=== PATIENT | female | born 1970 | race Caucasian/White ===

== ENCOUNTER 2017-06-23 12:36 | Emergency (ER) | payer BC, OTHER ==
[2017-06-23 12:47] VITALS: RESP 18
[2017-06-23] MEDS ORDERED: SODIUM CHLORIDE 0.9% 500 ML IV STA (13:38)
--- NOTE | 2017-06-23 13:46 | ED ---
Chest Pain HPI - General Chief Complaint: Chest Pain Stated Complaint: High Blood Pressure, Abnormal EKG Time Seen by Provider: 06/23/17 13:27 Source: patient, RN notes reviewed Mode of arrival: ambulatory Limitations: no limitations - History of Present Illness Initial Comments: 46-year-old female presented emergency department with chief complaint of chest discomfort, high blood pressure. She states that she's not been feeling well last 2 weeks states she's been having increasing chest pressure. Patient states that she is found to have high blood pressure at urgent care and sent over here. She states that she used to take blood pressure medication but has not taken in 3 years. She states she has not seen her PCP in over 3 years. She states she has a strong history of family heart disease, patient is a smoker. Patient states she has not had her cholesterol checked recently. Patient states that she is also having some dizziness. Denies any URI symptoms denies any thyroid dysfunction, nausea, vomiting diarrhea or constipation. - Related Data Home Medications Medication Instructions Recorded Confirmed Ibuprofen [Motrin] 800 mg PO Q6HR PRN 06/23/17 06/23/17 Multivitamins, Thera [Multivitamin 1 tab PO DAILY 06/23/17 06/23/17 (formulary)] Previous Rx's Medication Instructions Recorded Lisinopril [Zestril] 10 mg PO DAILY #14 tab 06/23/17 Allergies Allergy/AdvReac Type Severity Reaction Status Date / Time No Known Allergies Allergy Verified 06/23/17 14:11 Review of Systems ROS Statement: Those systems with pertinent positive or pertinent negative responses have been documented in the HPI. ROS Other: All systems not noted in ROS Statement are negative. EKG Findings - EKG Comments: EKG Findings:: EKG performed at 13:01 sinus bradycardia with sinus arrhythmia, rate of 56 OK 120 QRS 90 QT/QTC 396/382 Past Medical History Past Medical History: Hypertension History of Any Multi-Drug Resistant Organisms: None Reported Past Surgical History: Section Past Psychological History: No Psychological Hx Reported Smoking Status: Current every day smoker Past Alcohol Use History: Occasional Past Drug Use History: None Reported General Exam Limitations: no limitations General appearance: alert, in no apparent distress Head exam: Present: atraumatic, normocephalic, normal inspection ENT exam: Present: normal exam, normal oropharynx, mucous membranes moist, TM's normal bilaterally, normal external ear exam Neck exam: Present: normal inspection. Absent: tenderness, meningismus, lymphadenopathy Respiratory exam: Present: normal lung sounds bilaterally. Absent: respiratory distress, wheezes, rales, rhonchi, stridor Cardiovascular Exam: Present: regular rate, normal rhythm, normal heart sounds. Absent: systolic murmur, diastolic murmur, rubs, gallop, clicks GI/Abdominal exam: Present: soft, normal bowel sounds. Absent: distended, tenderness, guarding, rebound, rigid Neurological exam: Present: alert, oriented X3, CN II-XII intact Skin exam: Present: warm, dry, intact, normal color. Absent: rash Course Vital Signs 06/23/17 06/23/17 06/23/17 12:45 13:49 14:10 Temperature 98.2 F Pulse Rate 68 52 L 52 L Respiratory 18 18 18 Rate Blood Pressure 234/105 174/92 175/87 O2 Sat by Pulse 98 100 100 Oximetry 06/23/17 14:49 Temperature Pulse Rate 50 L Respiratory 18 Rate Blood Pressure 159/77 O2 Sat by Pulse 98 Oximetry Chest Pain MDM - MDM 46-year-old male present emergency department for hypertension, intermittent chest pressure over the last couple weeks. Patient lab work is unremarkable EKG unremarkable. Patient was offered admission to hospital though she declined. She understands that we cannot guarantee that she's not had a cardiac event time she should be evaluated by cardiology and have repeat cardiac enzymes. Patient declines. Patient we discharged on lisinopril and follow-up on at her scheduled appointment. Return parameters were discussed. Disposition Clinical Impression: Hypertension, Atypical chest pain Disposition: HOME SELF-CARE Condition: Stable Instructions: Chest Pain (ED) Additional Instructions: Please return to the Emergency Department if symptoms worsen or any other concerns. Prescriptions: Lisinopril [Zestril] 10 mg PO DAILY #14 tab Referrals: Franki Fernando DO [Primary Care Provider] - 1-2 days Time of Disposition: 15:12
[2017-06-23] MEDS ORDERED: cloNIDine HCL 0.1 MG TAB PO STA (13:54)
[2017-06-23 14:09] LABS: Basophils % (A) 0 %; CH 32.1; CHCM 34.2; Eosinophils # (A) 0.2 k/uL (0-0.7); Eosinophils % (A) 2 %; HCT 42.9 % (34.0-46.0); HDW 2.38; HGB 14.6 gm/dL (11.4-16.0); Luc # (Auto) 0.15; Luc % (Auto) 1; Lymphocytes # (A) 2.7 k/uL (1.0-4.8); Lymphocytes % (A) 26 %; MCV 94.1 fL (80.0-100.0); Mean Platelet Volume 7.8; Monocytes # (A) 0.5 k/uL (0-1.0); Monocytes % (A) 5 %; Neutrophils # (A) 6.6 k/uL (1.3-7.7); Neutrophils % (A) 65 %; RBC 4.56 m/uL (3.80-5.40); WBC 10.2 k/uL (3.8-10.6); WBC (Perox) 10.24
--- NOTE | 2017-06-23 14:10 | XR ---
EXAMINATION TYPE: XR chest 2V DATE OF EXAM: 06/23/2017 CLINICAL HISTORY: Chest pain TECHNIQUE: Frontal and lateral views of the chest are obtained. COMPARISON: None FINDINGS: There is no focal air space opacity, pleural effusion, or pneumothorax seen. The cardiac silhouette size is within normal limits. The osseous structures are intact. IMPRESSION: No acute cardiopulmonary process.
[2017-06-23 14:15] LABS: Partial Thromboplastin Time 26.8 sec (22.0-30.0); Prothrombin Time 10.4 sec (9.0-12.0)
[2017-06-23 14:20] LABS: ALT 45 U/L (9-52); AST 26 U/L (14-36); Alkaline Phosphatase 74 U/L (38-126); Anion Gap 9 mmol/L; Blood Urea Nitrogen 17 mg/dL (7-17); Calcium 9.5 mg/dL (8.4-10.2); Carbon Dioxide 22 mmol/L (22-30); Chloride 109 mmol/L (98-107); Glucose 82 mg/dL (74-99); Magnesium 2.2 mg/dL (1.6-2.3); Non-African American GFR(MDRD) >60 (>60 ml/min/1.73 sqM); Sodium 140 mmol/L (137-145); Total Bilirubin 0.3 mg/dL (0.2-1.3); Total Protein 6.8 g/dL (6.3-8.2)
[2017-06-23 14:22] LABS: Potassium 4.3 mmol/L (3.5-5.1)
[2017-06-23 14:29] LABS: Creatine Kinase 52 U/L (30-135)
[2017-06-23 14:42] LABS: Creatine Kinase MB 0.7 ng/mL (0.0-2.4); Troponin I <0.012 ng/mL (0.000-0.034)
[2017-06-23 15:20] VITALS: BP 147/68; PULSE 54; TEMP 98.1
== END 2017-06-23 15:23 | disposition home or self-care (01) ==
LOC: EC 12:36
DX: I10 Essential (primary) hypertension (principal); R07.89 Other chest pain; R42 Dizziness and giddiness; F17.200 Nicotine dependence, unspecified, uncomplicated; Z79.899 Other long term (current) drug therapy; Z82.49 Family history of ischemic heart disease and other diseases of the circulatory system
CPT/HCPCS: 36415; 71020; 80053; 82550; 82553; 83735; 84443; 84484; 85025; 85610; 85730; 93005; 96360; 99285

== ENCOUNTER 2022-07-01 00:03 | Emergency (ER) | payer BC ==
[2022-07-01 00:09] VITALS: TEMP 98
--- NOTE | 2022-07-01 00:19 | ED ---
Chest Pain HPI - General Chief Complaint: Chest Pain Stated Complaint: Chest pain Source: patient, RN notes reviewed, old records reviewed Mode of arrival: ambulatory Limitations: no limitations - History of Present Illness Initial Comments: This is a 51-year-old female DF for evaluation presented today for evaluation of elevated blood pressure history of hypertension and chest pain. No shortness of breath no other complaints. States the pain is dull in nature and started about 2 hours prior to arrival to the ER MD Complaint: chest pain -: hour(s) (2) Onset: during rest Pain Location: substernal, left chest Pain Radiation: none Severity: mild Severity scale (1-10): 2 Quality: dull Consistency: constant Improves With: nothing Worsens With: nothing Context: other (0) Anginal Symptoms: other (0) Other Symptoms: other (0) Treatments Prior to Arrival: none - Related Data Home Medications Medication Instructions Recorded Confirmed Ibuprofen [Motrin] 800 mg PO Q6HR PRN 06/23/17 06/23/17 Multivitamins, Thera [Multivitamin 1 tab PO DAILY 06/23/17 06/23/17 (formulary)] Previous Rx's Medication Instructions Recorded lisinopriL [Zestril] 10 mg PO DAILY #14 tab 06/23/17 Allergies Allergy/AdvReac Type Severity Reaction Status Date / Time No Known Allergies Allergy Verified 07/01/22 00:06 Review of Systems ROS Statement: Those systems with pertinent positive or pertinent negative responses have been documented in the HPI. ROS Other: All systems not noted in ROS Statement are negative. EKG Findings - EKG Comments: EKG Findings:: EKG is sinus 60 [place] 141 QRS 76 QTC 384 Past Medical History Past Medical History: Hypertension History of Any Multi-Drug Resistant Organisms: None Reported Past Surgical History: Section Past Psychological History: No Psychological Hx Reported Smoking Status: Current every day smoker Past Alcohol Use History: Occasional Past Drug Use History: None Reported General Exam Limitations: no limitations General appearance: alert, in no apparent distress Head exam: Present: atraumatic, normocephalic, normal inspection Eye exam: Present: normal appearance, PERRL, EOMI. Absent: scleral icterus, conjunctival injection, periorbital swelling ENT exam: Present: normal exam, mucous membranes moist Neck exam: Present: normal inspection. Absent: tenderness, meningismus, lymphadenopathy Respiratory exam: Present: normal lung sounds bilaterally. Absent: respiratory distress, wheezes, rales, rhonchi, stridor Cardiovascular Exam: Present: regular rate, normal rhythm, normal heart sounds. Absent: systolic murmur, diastolic murmur, rubs, gallop, clicks GI/Abdominal exam: Present: soft, normal bowel sounds. Absent: distended, tenderness, guarding, rebound, rigid Extremities exam: Present: normal inspection, full ROM, normal capillary refill. Absent: tenderness, pedal edema, joint swelling, calf tenderness Back exam: Present: normal inspection Neurological exam: Present: alert, oriented X3, CN II-XII intact Psychiatric exam: Present: normal affect, normal mood Skin exam: Present: warm, dry, intact, normal color. Absent: rash Course Vital Signs 07/01/22 07/01/22 00:06 01:37 Temperature 98 F Pulse Rate 67 60 Respiratory 16 18 Rate Blood Pressure 187/95 149/77 O2 Sat by Pulse 98 98 Oximetry - Reevaluation(s) Reevaluation #1: 07/01/22 01:41 Medical record is reviewed Reevaluation #2: 07/01/22 01:57 Patient informed results and questions are answered Chest Pain MDM - MDM 51 female D to the emergency department F for chest pain history of high blood pressure family history. Patient informed results here in the ER feels better questions answered patient can be discharged home Disposition Clinical Impression: Chest pain Disposition: HOME SELF-CARE Condition: Good Instructions (If sedation given, give patient instructions): Chest Pain (ED) Is patient prescribed a controlled substance at d/c from ED?: No Referrals: Franki Fernando DO [Primary Care Provider] - 1-2 days Time of Disposition: 02:00
[2022-07-01 01:11] LABS: Basophils # (A) 0.1 k/uL (0-0.2); Basophils % (A) 1 %; Eosinophils # (A) 0.3 k/uL (0-0.7); Eosinophils % (A) 3 %; HCT 38.9 % (34.0-46.0); HGB 13.5 gm/dL (11.4-16.0); Lymphocytes # (A) 3.9 k/uL (1.0-4.8); Lymphocytes % (A) 35 %; MCH 34.4 pg (25.0-35.0); MCHC 34.7 g/dL (31.0-37.0); Mean Platelet Volume 7.8; Monocytes # (A) 0.4 k/uL (0-1.0); Monocytes % (A) 4 %; Neutrophils # (A) 6.2 k/uL (1.3-7.7); Neutrophils % (A) 56 %; Platelet Count 297 k/uL (150-450); RBC 3.93 m/uL (3.80-5.40)
[2022-07-01 01:22] LABS: Partial Thromboplastin Time 26.7 sec (22.0-30.0); Prothrombin Time 10.2 sec (9.0-12.0)
--- NOTE | 2022-07-01 01:24 | XR ---
EXAMINATION TYPE: XR chest 2V DATE OF EXAM: 07/01/2022 COMPARISON: 06/23/2017 HISTORY: Chest pain TECHNIQUE: FINDINGS: Heart is normal. Lungs are clear. Diaphragm is normal. Bony thorax appears normal. There ar e no hilar masses. IMPRESSION: Normal chest. No change.
[2022-07-01 01:35] LABS: Albumin 4.3 g/dL (3.5-5.0); Calcium 9.1 mg/dL (8.4-10.2); Potassium 4.1 mmol/L (3.5-5.1); Total Bilirubin 0.3 mg/dL (0.2-1.3); Total Protein 7.1 g/dL (6.3-8.2)
[2022-07-01 01:37] VITALS: RESP 18
[2022-07-01 02:17] VITALS: BP 148/84; PULSE 62
== END 2022-07-01 01:45 | disposition home or self-care (01) ==
LOC: EC 00:03
DX: R07.9 Chest pain, unspecified (principal); I10 Essential (primary) hypertension; F17.200 Nicotine dependence, unspecified, uncomplicated
CPT/HCPCS: 36415; 71046; 80053; 84484; 85025; 85610; 85730; 93005; 99285

== ENCOUNTER 2023-01-18 11:40 | Emergency (ER) | payer BC ==
[2023-01-18] MEDS ORDERED: LIDOCAINE 1% INJ 10MG/ML (30 ML VIAL-PF) SQ ONE (12:28)
[2023-01-18] MEDS ORDERED: GELATIN SPONGE,ABSORB (LARGE) 1 EACH SPONGE TOPICAL STA (12:39)
[2023-01-18] MEDS ORDERED: DIPH,PERTUS(ACELL)TETVAC-LF 0.5 ML VIAL IM ONE (12:42)
--- NOTE | 2023-01-18 12:46 | ED ---
General Adult HPI - General Chief complaint: Wound/Laceration Stated complaint: Left finger laceration Time Seen by Provider: 01/18/23 12:18 Source: patient Mode of arrival: ambulatory - History of Present Illness Initial comments: 52-year-old female presents to ED with chief complaint of laceration. Patient states was slicing squash with a mandoline when she accidentally sliced her left fifth finger. Tetanus status unknown. Denies chest or shortness breath. No other complaints. - Related Data Home Medications Medication Instructions Recorded Confirmed Ibuprofen [Motrin] 800 mg PO Q6HR PRN 06/23/17 06/23/17 Multivitamins, Thera [Multivitamin 1 tab PO DAILY 06/23/17 06/23/17 (formulary)] Previous Rx's Medication Instructions Recorded lisinopriL [Zestril] 10 mg PO DAILY #14 tab 06/23/17 Allergies Allergy/AdvReac Type Severity Reaction Status Date / Time No Known Allergies Allergy Verified 01/18/23 11:47 Review of Systems ROS Statement: Those systems with pertinent positive or pertinent negative responses have been documented in the HPI. ROS Other: All systems not noted in ROS Statement are negative. Past Medical History Past Medical History: Hypertension History of Any Multi-Drug Resistant Organisms: None Reported Past Surgical History: Section Past Psychological History: No Psychological Hx Reported Smoking Status: Current every day smoker Past Alcohol Use History: Occasional Past Drug Use History: None Reported General Exam Limitations: no limitations General appearance: alert, in no apparent distress Head exam: Present: atraumatic, normocephalic Respiratory exam: Present: normal lung sounds bilaterally Cardiovascular Exam: Present: regular rate, normal rhythm Extremities exam: Present: other (Strength and sensation intact. Full active range of motion of left fifth finger.Radial pulses 2+. Skin avulsion on the palmar/medial aspect of the left fifth finger distal to the DIP.) Neurological exam: Present: alert, oriented X3 Psychiatric exam: Present: normal affect, normal mood Course Vital Signs 01/18/23 01/18/23 11:42 13:41 Temperature 97.8 F 98 F Pulse Rate 57 L 60 Respiratory 18 16 Rate Blood Pressure 150/63 135/82 O2 Sat by Pulse 97 99 Oximetry Medical Decision Making - Medical Decision Making Was pt. sent in by a medical professional or institution (, PA, MACHINE GUNNER, urgent care, hospital, or skilled nursing...) When possible be specific @ -No Did you speak to anyone other than the patient for history (EMS, parent, family, police, friend...)? What history was obtained from this source @ -No Did you review nursing and triage notes (agree or disagree)? Why? @ -I reviewed and agree with nursing and triage notes Were old charts reviewed (outside hosp., previous admission, EMS record, old EKG, old radiological studies, urgent care reports/EKG's, skilled nursing records)? Report findings @ -No old charts were reviewed Differential Diagnosis (chest pain, altered mental status, abdominal pain women, abdominal pain men, vaginal bleeding, weakness, fever, dyspnea, syncope, headache, dizziness, GI bleed, back pain, seizure, CVA, palpatations, mental health, musculoskeletal)? @ -Acute tendon injury. Acute fracture. This is not meant to be an all- inclusive list. EKG interpreted by me (3pts min.). @ -None. X-rays interpreted by me (1pt min.). @ -None done CT interpreted by me (1pt min.). @ -None done U/S interpreted by me (1pt. min.). @ -None done What testing was considered but not performed or refused? (CT, X-rays, U/S, labs)? Why? @ -None What meds were considered but not given or refused? Why? @ -None Did you discuss the management of the patient with other professionals (prof beau i.e. , PA, MACHINE GUNNER, lab, RT, psych nurse, director social service, dance master, teacher, staff electronic warfare officer, case investigator)? Give summary @ -No Was smoking cessation discussed for >3mins.? @ -No Was critical care preformed (if so, how long)? @ -No Were there social determinants of health that impacted care today? How? (Homelessness, low income, unemployed, alcoholism, drug addiction, transportation, low edu. Level, literacy, decrease access to med. care, [facility], rehab)? @ -No Was there de-escalation of care discussed even if they declined (Discuss DNR or withdrawal of care, Hospice)? DNR status @ -No What co-morbidities impacted this encounter? (DM, HTN, Smoking, COPD, CAD, Cancer, CVA, ARF, Chemo, Hep., AIDS, mental health diagnosis, sleep apnea, morbid obesity)? @ -None Was patient admitted / discharged? Hospital course, mention meds given and route, prescriptions, significant lab abnormalities, going to OR and other pertinent info. @ -Discharge. Patient had a partial skin avulsion of the left fifth finger. Unable to approximate any skin at this time. Wound irrigated. Wound was covered with Gelfoam and wrapped in gauze/Coban. Tetanus updated. Discussed return cautions patient verbalizes agreement. Undiagnosed new problem with uncertain prognosis? @ -No Drug Therapy requiring intensive monitoring for toxicity (Heparin, Nitro, Insulin, Cardizem)? @ -No Were any procedures done? @ -No Diagnosis/symptom? @ -Partial skin avulsion of left fifth finger Acute, or Chronic, or Acute on Chronic? @ -Acute Uncomplicated (without systemic symptoms) or Complicated (systemic symptoms)? @ -Uncomplicated Side effects of treatment? @ -No Exacerbation, Progression, or Severe Exacerbation? @ -No Poses a threat to life or bodily function? How? (Chest pain, [place], [place], pneumonia, PE, COPD, DKA, ARF, appy, cholecystitis, CVA, Diverticulitis, Homicidal, Suicidal, threat to staff... and all critical care pts) @ -No Disposition Clinical Impression: Avulsion of skin of finger Disposition: HOME SELF-CARE Condition: Good Instructions (If sedation given, give patient instructions): Skin Avulsion (ED) Additional Instructions: Please return to the Emergency Department if symptoms worsen or any other concerns. Is patient prescribed a controlled substance at d/c from ED?: No Referrals: Franki Fernando DO [Primary Care Provider] - 1-2 days Time of Disposition: 13:25
[2023-01-18 13:43] VITALS: BP 135/82; PULSE 60; RESP 16; TEMP 98
== END 2023-01-18 13:45 | disposition home or self-care (01) ==
LOC: EC 11:40
DX: S61.207A Unspecified open wound of left little finger without damage to nail, initial encounter (principal); I10 Essential (primary) hypertension; F17.200 Nicotine dependence, unspecified, uncomplicated; Z23 Encounter for immunization; W26.8XXA Contact with other sharp object(s), not elsewhere classified, initial encounter
CPT/HCPCS: 90715; 99282; 90471; J2001

== ENCOUNTER → 2023-08-03 | Outpatient (CLI) | payer BC ==
--- NOTE | 2023-08-04 17:30 | MM ---
Reason for Exam: Screening (asymptomatic). Last mammogram was performed 8 year(s) and 7 month(s) ago. Patient History: Menarche at age 16. First Full-Term at age 27. Postmenopausal. Patient used Hormonal Contraceptives for 4 years. Risk Values: Na 5 year model risk: 1.0%. NCI Lifetime model risk: 8.9%. Prior Study Comparison: 01/10/2015 Bilateral Diagnostic Mammogram, [facility]. Tissue Density: The breast tissue is extremely dense which could obscure a lesion on mammography. Findings: Analyzed By CAD. Pattern appears symmetrical and stable. No significant interval change is evident. No suspicious groups of microcalcifications, spiculated or lobular masses, architectural distortion or other secondary signs of malignancy are mammographically apparent. Overall Assessment: Benign, BI-RAD 2 Management: Screening Mammogram of both breasts in 1 year. A negative mammogram report should not preclude additional follow up of suspicious palpable abnormalities. Patient should continue monthly self breast exam. A clinical breast exam by your physician is recommended on an annual basis and results should be correlated with mammographic findings. Electronically signed and approved by: Mushtaq Riojas D.O. Radiologis
== END | disposition home or self-care (01) ==
LOC: RADMAMWWP 13:57
PROVIDERS: ATTEND Family Medicine
DX: Z12.31 Encounter for screening mammogram for malignant neoplasm of breast (principal); Z78.0 Asymptomatic menopausal state
CPT/HCPCS: 77067

== ENCOUNTER → 2024-11-14 | Outpatient (CLI) | payer BC ==
--- NOTE | 2024-11-14 12:44 | CA ---
Transthoracic Echo Report Name: Marilyn Curran Age: 53 Gender: F : 1970 Exam Date: 11/14/2024 11:47 Exam Location: [place] [facility] Ht (in): 66 Wt (lb): 180 Ordering Physician: Franki Fernando DO Attending/Referring Phys: Emilie Roque NPC Manager Contracting [employer] Greenberg RDCS Procedure CPT: Indications: I50.1 LEFT VENTRICULAR FAILURE, UNSPECIFIED Cardiac Hx: Technical Quality: Fair Contrast 1: Total Dose (mL): Contrast 2: Total Dose (mL): MEASUREMENTS (Male / Female) Normal Values 2D ECHO LV Diastolic Diameter PLAX 4.9 cm 4.2 - 5.9 / 3.9 - 5.3 cm LV Systolic Diameter PLAX 3.1 cm IVS Diastolic Thickness 1.0 cm 0.6 - 1.0 / 0.6 - 0.9 cm LVPW Diastolic Thickness 0.8 cm 0.6 - 1.0 / 0.6 - 0.9 cm LV Relative Wall Thickness 0.4 RV Internal Dim ED PLAX 2.1 cm LA Systolic Diameter LX 4.7 cm 3.0 - 4.0 / 2.7 - 3.8 cm LV Diastolic Volume MOD BP 58.2 cm??? 67 - 155 / 56 - 104 cm??? LV Systolic Volume MOD BP 17.0 cm??? 22 - 58 / 19 - 49 cm??? LV Ejection Fraction MOD BP 70.7 % >= 55 % LV Cardiac Index MOD BP 1650.4 cm???/min???m??? LV Diastolic Volume MOD 4C 63.6 cm??? LV Systolic Volume MOD 4C 15.2 cm??? LV Ejection Fraction MOD 4C 76.2 % LV Cardiac Index MOD 4C 1940.4 cm???/min???m??? LV Diastolic Length 4C 7.1 cm LV Systolic Length 4C 5.3 cm LV Diastolic Volume MOD 2C 52.9 cm??? LV Systolic Volume MOD 2C 17.9 cm??? LV Ejection Fraction MOD 2C 66.2 % LV Cardiac Index MOD 2C 1403.1 cm???/min???m??? LV Diastolic Length 2C 7.2 cm LV Systolic Length 2C 6.0 cm LA Volume 58.0 cm??? 18 - 58 / 22 - 52 cm??? LA Volume Index 29.4 cm???/m??? 16 - 28 cm???/m??? M-MODE Aortic Root Diameter MM 3.1 cm LA Systolic Diameter MM 3.7 cm LA Ao Ratio MM 1.2 AV Cusp Separation MM 1.5 cm DOPPLER AV Peak Velocity 254.8 cm/s AV Peak Gradient 26.0 mmHg AV Mean Velocity 172.0 cm/s AV Mean Gradient 13.1 mmHg AV Velocity Time Integral 49.2 cm LVOT Peak Velocity 207.3 cm/s LVOT Peak Gradient 17.2 mmHg LVOT Velocity Time Integral 45.9 cm MV Area PHT 2.7 cm??? Mitral E Point Velocity 99.8 cm/s Mitral A Point Velocity 109.5 cm/s Mitral E to A Ratio 0.9 MV Deceleration Time 283.3 ms TR Peak Velocity 171.2 cm/s TR Peak Gradient 11.7 mmHg FINDINGS Left Ventricle Left ventricular ejection fraction is estimated at 55-60.Normal left ventricular systolic function with no obvious regional wall motion abnormalities. Left ventricular cavity size normal. Right Ventricle Normal right ventricular size and function. Right Atrium Mild right atrial dilatation. Left Atrium Mildly increased left atrial volume. Mitral Valve Structurally normal mitral valve. Mild mitral regurgitation. No mitral stenosis. Aortic Valve Trileaflet aortic valve. Mild aortic stenosis with a peak gradient of 26 mmHg and a mean gradient of 13mmHg. No aortic regurgitation. Tricuspid Valve Structurally normal tricuspid valve. Trace tricuspid regurgitation. No tricuspid stenosis. Pulmonic Valve No pulmonic stenosis.pulmonic valve not well visualized. Pericardium No pericardial or pleural effusion. Aorta Normal size aortic root and proximal ascending aorta. CONCLUSIONS 1. Normal left ventricular size and systolic function 2. Mild aortic stenosis with a mean gradient of 13 mmHg 3. Mild mitral regurgitation Previewed by: Dr. Julee Roman MD (Electronically Signed) Final Date: 14 November 2024 12:43
== END | disposition home or self-care (01) ==
LOC: RADECHMAIN 11:33
PROVIDERS: ATTEND Family Medicine
DX: I08.0 Rheumatic disorders of both mitral and aortic valves (principal); I50.1 Left ventricular failure, unspecified
CPT/HCPCS: 93306